=== PATIENT | male | born 1990 | race Two or more races ===

== ENCOUNTER 2016-10-12 17:13 | Emergency (ER) | payer SELFPAY ==
[~2016-10-12] VITALS: Ht 177.8 cm; Wt 79.4 kg
[2016-10-12 17:21] VITALS: BP 130/104
--- NOTE | 2016-10-12 17:39 | PHYS DOC ---
Past Medical History Past Medical History: No Pertinent History Past Surgical History: Other Additional Past Surgical Histo: R)ankle fx with repair. Smoking: Less than 1pk/day Alcohol Use: Occasionally Drug Use: None Adult General Chief Complaint Chief Complaint: WRIST PAIN HPI HPI Patient is a 26 year old male who presents with left wrist pain. He was helping a friend to move and they were carrying a safe. The safe started to fall as they were setting it down. The patient's wrist twisted as he tried to move out of the way of the falling safe. He reports that he felt a pop in his wrist. He denies numbness or tingling in the fingers. He does not have a PCP. Review of Systems Review of Systems Constitutional: Denies fever or chills. [] Musculoskeletal: Denies back pain. Reports left wrist pain. Integument: Denies rash or skin lesions. [] Neurologic: Denies focal weakness or sensory changes. [] Allergies Allergies Allergies Coded Allergies Type Severity Reaction Last Updated Verified No Known Drug Allergies 02/13/15 No Physical Exam Physical Exam Constitutional: Well developed, well nourished, no acute distress, non-toxic appearance. [] HENT: Normocephalic, atraumatic, oropharynx moist. [] Eyes: PERRLA, EOMI, conjunctiva normal, no discharge. [] Skin: Warm, dry, no erythema, no rash. There is no laceration, abrasion, ecchymosis, or edema of the left wrist. Extremities: Left distal ulnar tenderness, ROM mildly decreased due to pain, no edema. 2+ radial and ulnar pulses. Less than 2 second capillary refill in the fingers. Light touch sensation intact distally. Neurologic: Alert and oriented X 3, normal motor function, normal sensory function, no focal deficits noted. [] Psychologic: Affect normal, judgement normal, mood normal. [] Current Patient Data Vital Signs Vital Signs Date Time Temp Pulse Resp B/P Pulse Ox O2 Delivery O2 Flow Rate FiO2 10/12/16 17:21 98.1 84 18 97 Room Air 98.1 EKG EKG [] Radiology/Procedures Radiology/Procedures Three-view x-ray of the left wrist reviewed and interpreted by myself with Dr. Madrigal. There are no acute fracture dislocation seen. Course & Med Decision Making Course & Med Decision Making Pertinent Labs and Imaging studies reviewed. (See chart for details) A Velcro thumb spica splint was applied by ED RN. The patient was instructed to follow-up with orthopedics if his pain continues. He is discharged home with prescription for Naprosyn. Return precautions were discussed. He verbalizes understanding and agrees with plan. Dragon Disclaimer Dragon Disclaimer This electronic medical record was generated, in whole or in part, using a voice recognition dictation system. Departure Departure Impression: Primary Impression: Left wrist sprain Disposition: HOME, SELF-CARE Condition: STABLE Referrals: WILLY HERRERA MD Patient Instructions: Wrist Pain, [id number] Additional Instructions: Your x-ray did not show any broken bones or dislocations. Please wear the provided wrist brace to help decrease your pain. Please take the prescribed pain medication as instructed. Please follow-up with the orthopedic doctor listed below if your pain continues. Return to the emergency department if you have any new or concerning symptoms. Scripts Naproxen (Naprosyn)500 Mg Tablet1 Tab PO BID #20 TAB Prov:RITA PEPE 10/12/16 Problem Qualifiers Primary Impression: Left wrist sprain Encounter type: initial encounter Qualified Code: S63.502A - Unspecified sprain of left wrist, initial encounter RITA PEPE Oct 12, 2016 17:39
[2016-10-12] MEDS ORDERED: NAPR500T PO (18:38)
--- NOTE | 2016-10-13 07:53 | RAD ---
Left wrist radiographs History: Trauma, injury to the left wrist today while carrying safe. Comparison: None. Findings: PA, lateral, and oblique views of the left wrist. No acute fracture or dislocation is identified. No focal soft tissue swelling is seen. Impression: No acute osseous traumatic injury identified.
== END 2016-10-12 18:44 | disposition home or self-care (01) ==
LOC: ER 17:13
DX: S63.502A Unspecified sprain of left wrist, initial encounter (principal); F17.200 Nicotine dependence, unspecified, uncomplicated; X50.9XXA Other and unspecified overexertion or strenuous movements or postures, initial encounter; Y93.89 Activity, other specified; Y99.8 Other external cause status; Y92.89 Other specified places as the place of occurrence of the external cause
CPT/HCPCS: 29125; 73110; 99284-25

== ENCOUNTER 2021-04-15 02:14 | Emergency (ER) | payer SELFPAY ==
[~2021-04-15 02:14] MED LIST: EPINEPHrine SYRINGE 1 MG/10 ML SYRINGE ONE; NAPR-683 PO
--- NOTE | 2021-04-15 02:36 | PHYS DOC ---
Past Medical History Past Medical History: No Pertinent History General Adult HPI: HPI: Patient is a 31-year-old male presenting via EMS for cardiac arrest. Patient reportedly had no known medical issues and on no medications. Was found hanging by the neck using dog leash wire by girlfriend. Patient then ran over to patient's parents house he lives several blocks down and notified them of what she found, parents subsequently transported back to house where they found their son hanging by the neck. EMS was subsequently contacted. On arrival, patient w as still hanging by neck and had been hanging for 20 minutes since initially being found by girlfriend, it is unclear how long he was hanging prior to her finding him. He was warm but unresponsive, GCS 3. Patient was immediately taken down, intubated and proper ACLS protocol ensued. Left lower extremity IO placed. X1 lidocaine and x4 doses of epinephrine were administered. Patient was initially PEA but had x2 episodes of ventricular fibrillation resulting in electric defib that did not significantly improve patient condition. Patient emergently transported to our ER for evaluation. On arrival, patient still unresponsive in cardiac arrest in process with estimated downtime being 45 minutes prior to arrival. Review of Systems: Review of Systems: Unobtainable due to ongoing arrest Heart Score: C/O Chest Pain: N/A Risk Factors: Risk Factors: DM, Current or recent (<one month) smoker, HTN, HLP, family history of CAD, obesity. Risk Scores: Score 0 - 3: 2.5% MACE over next 6 weeks - Discharge Home Score 4 - 6: 20.3% MACE over next 6 weeks - Admit for Clinical Observation Score 7 - 10: 72.7% MACE over next 6 weeks - Early Invasive Strategies Physical Exam: PE: Constitutional: Age-appropriate, toxic appearing, cardiac arrest in process HEENT: Head: Normocephalic TMs clear, no hemotympanum, negative lawson sign Conjunctivae are normal. Pupils are round, dilated to 4 mm bilaterally, fixed and not reactive to light Oropharynx with ETT present and appearing in satisfactory position with no den tition abnormalities OP clear, no blood, no malocclusion, dentition intact Nares clear, no nasal septal hematoma Midface stable Neck: C-spine midline with palpable abnormalities at midline and step-off at locations of C1-C2 and C3 Trauma present neck with indentation from noose used to wrap around neck for hanging purposes most prominent on posterior side wrapping anteriorly with ecchymosis and petechia present Cardiovascular: Normal rate, regular rhythm and normal heart sounds. Pulmonary/Chest: Effort normal and breath sounds normal. No respiratory distress. No wheezes. CTA bilaterally Abdominal: Soft. Bowel sounds are normal. Pt exhibits no distension. There is no tenderness. Musculoskeletal: No bony tenderness to extremities, no obvious visible or palpable deformities Chest wall stable Pelvis stable and non-tender Vertebral spine without stepoffs Well positioned left tibial IO Neurological: No purposeful body movements noted Nonresponsive to pain GCS 3 Downgoing toes bilaterally Pupils fixed and dilated, unreactive to light Skin: Skin is warm and dry. Patient has significant abrasion as noted above around the neck consistent with recent hanging attempt Psychiatric: Unable to assess due to ongoing cardiac arrest EKG: EKG: [] Radiology/Procedures: Radiology/Procedures: [] Course & Med Decision Making: Course & Med Decision Making Cardiac arrest ongoing on arrival. Transferred over to our ER bed in trauma bay in pads placed, patient remained pulseless and asystole on initial check Subsequent ACLS protocol ensued. Please defer to nursing sheet regarding specifics of care. After numerous rounds of asystole, lack of cardiac activity on ultrasound, and amount of downtime as patient was down for 45 minutes prior to arrival, resuscitation efforts called off I formally evaluated patient and during exam patient did not respond to verbal or physical stimulus. Absent heart and breath sounds on auscultation. Absent peripheral pulses. Pupils dilated and fixed. Bedside ultrasonography was again used and confirmed no cardiac activity on subxiphoid and parasternal views. Patient pronounced at 0226 hrs. Mother and stepfather arrived at hospital. They were notified of patient's . They further report that there were relationship issues with girlfriend. I advised them they could not see their son at this time given potential for it being a crime scene. Charge nurse present throughout entirety of [facility] Critical Care Time This patient required critical care. Due to the fact that the patient required a significant amount of one on one physician - patient contact time, ordering and review of studies, arranging urgent treatment with development of a management plan, evaluation of patients response to treatment with frequent reassessments, and discussions with other providers this patient required 35 minutes of critical care time. Critical care time was indicated due to the inherent instability and/or potential for instability in this patient. The critical care time that is allocated to this patient is above and beyond any time spent on any other billable procedures performed on this patient. Suzy Disclaimer: Suzy Disclaimer: This electronic medical record was generated, in whole or in part, using a voice recognition dictation system. Departure Departure Impression: Primary Impression: by hanging Additional Impression: Cardiac arrest Disposition: 20 Condition: SRINIVAS TONY DO Apr 15, 2021 02:36
== END 2021-04-15 07:35 ==
LOC: MERGE 02:14 → ER 02:14 → EDBD 02:14 → ER 07:35
DX: T71.162A Asphyxiation due to hanging, intentional self-harm, initial encounter (principal); I46.9 Cardiac arrest, cause unspecified
CPT/HCPCS: 92950; 99285; J0171